=== PATIENT | male | born 1950 ===

== ENCOUNTER 2023-04-30 10:36 | Day surgery (SDC) | payer MEDICARE ==
[2023-04-30] MEDS: Lactated Ringers 1,000 ML IV SCH ×2 (10:15→14:21)
[~2023-04-30 10:36] MED LIST: Lactated Ringers 1,000 ML IV SCH; Lactated Ringers 1,000 ML ONE; Midazolam 1 MG/ML 2 ML SDV ONE; Morphine 8 MG, EPINEPHrine 0.3 MG, Cefuroxime 750 MG, Ketorolac 30 MG, Sodium Chloride ... PRN; Propofol 200 MG/20 ML SDV ONE; Sodium Chloride 0.9% 10 ML Syringe FLUSH PRN; Sodium Chloride 0.9% 10 ML Syringe FLUSH SCH; ceFAZolin 2 GM Vial ONE; fentaNYL 100 MCG/2 ML SDV ONE
[2023-04-30] MEDS ORDERED: Tranexamic Acid 1,000 MG/10 ML Vial ONE (11:14)
[2023-04-30] MEDS ORDERED: Vancomycin 1 GM SDV ONE (11:14)
[2023-04-30] MEDS ORDERED: Ketamine 500 mg/10 ML MDV ONE (12:19)
[2023-04-30] MEDS ORDERED: Lidocaine 1% 4 ML ONE (12:19)
[2023-04-30] MEDS ORDERED: Dexmedetomidine 200 MCG/2 ML SDV ONE (12:19)
[2023-04-30] MEDS ORDERED: Ondansetron 4 MG/2 ML SDV ONE (12:19)
[2023-04-30] MEDS ORDERED: HYDROmorphone 0.5 MG/0.5 ML Syringe ONE ×2 (12:19→12:29)
[2023-04-30] MEDS ORDERED: Rocuronium 50 MG/5 ML Vial ONE (12:19)
[2023-04-30] MEDS ORDERED: fentaNYL 100 MCG/2 ML SDV ONE (12:30)
[2023-04-30] MEDS ORDERED: Lidocaine 1% PF 2 ML SDV ONE ×2 (12:40→12:45)
[2023-04-30] MEDS ORDERED: HYDROmorphone 0.5 MG/0.5 ML Syringe IVPUSH PRN (12:50)
[2023-04-30] MEDS ORDERED: Ondansetron 4 MG/2 ML SDV IVPUSH PRN (12:50)
[2023-04-30] MEDS ORDERED: ePHEDrine 50 MG/ML SDV ONE (13:15)
[2023-04-30] MEDS: fentaNYL 100 MCG/2 ML SDV IVPUSH PRN ×2 (13:56→14:27)
[2023-04-30] MEDS ORDERED: Acetaminophen/HYDROcodone 325-5 MG Tab PO PRN (15:19)
== END 2023-04-30 15:20 | disposition home or self-care (01) ==
LOC: JD.SDS 10:36
PROVIDERS: ATTEND Orthopaedic Surgery
DX: M16.12 Unilateral primary osteoarthritis, left hip (principal); I10 Essential (primary) hypertension; E11.9 Type 2 diabetes mellitus without complications; E78.00 Pure hypercholesterolemia, unspecified; M54.50 Low back pain, unspecified; M79.604 Pain in right leg; M79.605 Pain in left leg; K59.00 Constipation, unspecified; F17.220 Nicotine dependence, chewing tobacco, uncomplicated; Z88.8 Allergy status to other drugs, medicaments and biological substances; Z79.84 Long term (current) use of oral hypoglycemic drugs; Z79.899 Other long term (current) drug therapy
CPT/HCPCS: 0055T; 27130; 36415; 73501; 82947; 86850; 86900; 86901; 97116; 97161; A9270; C1713; C1776; J0171; J0690; J0697; J1170; J1885; J2250; J2270; J2405; J2704; J3010; J3370; J3490; J7030; J7120; 01214